=== PATIENT | female | born 1940 | race Caucasian/White ===

== ENCOUNTER 2016-10-23 17:16 | Emergency (ER) | payer SELFPAY ==
[~2016-10-23] VITALS: Wt 48.5 kg
[2016-10-23] MEDS ORDERED: ACETAMINOPHEN 500 MG TAB PO STA (17:40)
[2016-10-23] MEDS ORDERED: LIDOCAINE 1% (MDV) 20 ML INJ SC ONE (18:00)
[2016-10-23] MEDS ORDERED: ACET500C5 PO (18:33)
[2016-10-23] MEDS ORDERED: NEOM28OI TP (18:33)
--- NOTE | 2016-10-23 18:38 | ERD ---
ER Documentation Chief Complaint Date/Time DATE: 10/23/16 TIME: 18:35 Chief Complaint chin laceration and lip laceration from a mechanical glf. no loc HPI This 76-year-old female tripped over an uneven curb and sustained a laceration on her lower lip, chin and inner lower lip. There is no history of significant head injury, neck pain, weakness and the patient has been under the observation of her friends. She has an abrasion on her left big toe as well without restricted range of motion weakness. No vomiting, visual changes, weakness. ROS All systems reviewed and are negative except as per history of present illness. Medications Home Meds Active Scripts Neomycin Pickett/Bacitrac Zn/Poly (Triple Antibiotic Ointment) 28 Gm Oint...g., 28 GM TP TID for 5 Days Prov:AVILA REZA MD 10/23/16 Acetaminophen* (Tylophen*) 500 Mg Capsule, 1 CAP PO Q6H Y for PAIN AND OR ELEVATED TEMP, #15 CAP Prov:AVILA REZA MD 10/23/16 PMhx/Soc Medical and Surgical Hx: pt denies Surgical Hx Hx Cardiac Disorders: Yes (htn) Hx Psychiatric Problems: No Hx Miscellaneous Medical Probl: No Hx Alcohol Use: No Hx Substance Use: No Hx Tobacco Use: No Smoking Status: Never smoker Physical Exam Vitals Vital Signs Date Time Temp Pulse Resp B/P Pulse Ox O2 Delivery O2 Flow Rate FiO2 10/23/16 17:20 98.4 88 20 180/81 97 Physical Exam Const: [] Alert, [id number] per Head: Atraumatic Eyes: Normal Conjunctiva ENT: Normal External Ears, Nose and Mouth. There is a 1 cm laceration on the inner aspect of the lower lip. There is also a 1 cm laceration on the outer aspect of the lower lip not involving the vermilion border. There is a 1.5 cm laceration on the lower chin is well without deformities or laceration. Neck: Full range of motion..~ No meningismus.. Neck nontender Resp: Clear to auscultation bilaterally Cardio: Regular rate and rhythm, no murmurs Abd: Soft, non tender, non distended. Normal bowel sounds Skin: No petechiae or rashes Back: No midline or flank tenderness Ext: No cyanosis, or edema. On the left big toe there is an abrasion at the tip with no active bleeding. There is no deformities, restricted range of motion or weakness. Neur: Awake and alert Psych: Normal Mood and Affect Results 24 hrs Current Medications Medications (Trade) Dose Ordered Sig/Cesar Route PRN Reason Start Time Stop Time Status Last Admin Dose Admin Lidocaine (Xylocaine 1% (Mdv) 20 ml) 20 ml ONCE ONCE SC 10/23/16 18:00 10/23/16 18:01 DC Acetaminophen (Tylenol Tab) 500 mg ONCE STAT PO 10/23/16 17:40 10/23/16 17:42 DC 10/23/16 17:51 Procedures/MDM Patient presents with a lower lip laceration, inner mouth laceration and chin laceration without evidence of fracture, airway compromise, neck injury, significant head injury, weakness patient also has an abrasion on her left big toe without signs or symptoms to suggest fracture, dislocation, deficits. The wounds were irrigated copiously with normal saline. 4 cc of lidocaine was used for local infiltration. To 6-0 Vicryl sutures were used on the inner mouth laceration. 3 6-0 nylon sutures were used to reapproximate the outer lip laceration and 3 6-0 nylon sutures were used to reapproximate the chin laceration. Patient tolerated procedure well was stable throughout the ED course. The left big toe abrasion was cleansed and dressed. Patient will be discharged home for wound check in 2 days and suture removal in 5-7 days. She should otherwise return sooner for new or worsening symptoms. There is no signs or symptoms to suggest head injury, neck injury, pressure, dislocation, additional complications due to the patient's fall today. She should however return to the ER for new or worsening symptoms Departure Diagnosis: Primary Impression: Fall Encounter type: initial encounter Qualified Code: W19.XXXA - Fall, initial encounter Additional Impression: Laceration Condition: Stable Patient Instructions: Contusion, Lower Extremity, Fall, Mechanical, Laceration , Face (Suture Or Tape) Additional Instructions: 2 CASTRO CHEQUE PARA INFECCION Y 5 CASTRO SACA [place]UN[place]. AVILA REZA MD October 23, 2016 18:38
[2016-10-23 18:59] VITALS: BP 143/70; PULSE 70; RESP 16
== END 2016-10-23 19:00 | disposition home or self-care (01) ==
LOC: FTE 17:16
DX: S01.511A Laceration without foreign body of lip, initial encounter (principal); S01.81XA Laceration without foreign body of other part of head, initial encounter; I10 Essential (primary) hypertension; W18.39XA Other fall on same level, initial encounter; Y92.9 Unspecified place or not applicable